=== PATIENT | male | born 1975 | race Caucasian/White ===

== ENCOUNTER 2024-07-06 22:18 | Emergency (ER) | payer OTHER, SELFPAY ==
[2024-07-06 22:35] VITALS: BP 129/90; PULSE 98; RESP 16; TEMP 36.7; O2SAT 97; BMI 32.1
--- NOTE | 2024-07-06 22:47 | ED_ITS ---
HPI - General Adult General Chief complaint: Back Injury/Pain Stated complaint: lower back pain Time Seen by Provider: 07/06/24 22:34 History of Present Illness HPI narrative: c/o back pain pt. woke up this morning with lower back pain. has been resting in bed all day. pt also c/o pain radiating down the right leg. pt. as been taking Advil at home with out much relief. 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 49-year-old man presenting to the emergency department with complaint of severe lower back pain. I ask about radiation down his legs but him this does not actually appear to be the case. It sounds like it is spasming or shocks of pain across his low back and then radiating up his back. He has been taking Advil without relief. No specific injury was noted. He just woke with this. No hematuria or dysuria or frequency described. No specific trauma noted. Never had pain like this before. Otherwise has been experiencing some swelling in his right lower leg over last few weeks. No pain here. Notes prior surgical procedure resulting in a divot in his anterior distal 3rd herr. Unclear what this procedure was. No cough or shortness of breath. 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 Advil has not been helpful. Related Data Home Medications ?Medication ?Instructions ?Recorded ?Confirmed No Known Home Medications 07/06/2406/14 Allergies Allergy/AdvReac Type Severity Reaction Status Date / Time No Known Drug Allergies Allergy Verified 07/06/24 22:32 Review of Systems Status of ROS: Reports: 6 or more systems reviewed and unremarkable except as noted in History and below Exam Narrative: Exam Narrative: Pleasant. Seated gingerly semi recumbent in the exam bed. Certain movements though suddenly cause spasms and gasps of pain. Right lower leg does have a depression in the lower 3rd mid anterior herr. Generally the right leg is moderately swollen with mild pitting edema but a little more so than the left which has a little bit as well. No significant erythematous change. Perfused peripherally. Thickened and yellowed toenails and generally increased calluses over heel and feet but no areas of skin breakdown or erythema. Lungs appear to be clear. Back without deformity. There is tenderness in the mid low back. Tenderness about the left greater than right SI joint but more superior to that. No tenderness to palpation of the buttock. Straight leg raise is negative other than causing pain in the back. Appears to be moving extremities with normal strength. Const: Vital Signs, click to edit/add: Vital Signs - 24 hr 07/06/24 22:35 Temperature 98.1 F Pulse Rate [Pulse Oximeter] 98 Respiratory Rate 16 Blood Pressure [Ri ght Upper Arm] 129/90 H Pulse Oximetry 97 Oxygen Delivery Me thod Room Air Documenting provider has reviewed patient's vital signs: yes Course Vital Signs Vital signs: Initial Vital Signs Temperature 98.1 F 07/06/24 22:35 Temperature Source Temporal Artery Scan 07/06/24 22:35 Pulse Rate 98 07/06/24 22:35 Respiratory Rate 16 07/06/24 22:35 Blood Pressure 129/90 H 07/06/24 22:35 Blood Pressure Mean 103 07/06/24 22:35 Blood Pressure Position Semi-Fowlers 07/06/24 22:35 Pulse Oximetry 97 07/06/24 22:35 Oxygen Delivery Method Room Air 07/06/24 22:35 Vital Signs Temperature 98.1 F 07/06/24 22:35 Pulse Rate 98 07/06/24 22:35 Respiratory Rate 16 07/06/24 22:35 Blood Pressure 129/90 H 07/06/24 22:35 Pulse Oximetry 97 07/06/24 22:35 Oxygen Delivery Method Room Air 07/06/24 22:35 Temperature 98.1 F 07/06/24 22:35 Pulse Rate 98 07/06/24 22:35 Respiratory Rate 16 07/06/24 22:35 Blood Pressure 129/90 H 07/06/24 22:35 Pulse Oximetry 97 07/06/24 22:35 Oxygen Delivery Method Room Air 07/06/24 22:35 Medications Administered Medications: Discontinued Medications Generic Name Dose Route Start Last Admin Trade Name Freq PRN Reason Stop Dose Admin Hydromorphone HCl 1 mg 07/06/24 22:55 07/06/24 23:00 Hydromorphone 0.5 Mg/0.5 Ml Inj IM 07/06/24 22:56 1 mg ONCE ONE Administration Ketorolac Tromethamine 60 mg 07/06/24 22:55 07/06/24 23:01 Ketorolac 60 Mg/2 Ml Inj IM 07/06/24 22:56 60 mg ONCE ONE Administration Lidocaine 1 patch 07/07/24 01:44 07/07/24 02:01 Lidocaine 5% Patch TRANSDERMA 07/07/24 01:45 1 patch ONCE ONE Administration Protocol Medical Decision Making MDM Narrative Medical decision making narrative: I wonder if may have some bulging disc or slipped disc but not really impinging on distally going nerves. Perhaps there is resulting muscle spasm. I suspect more though SI joint irritation resulting in muscle spasms of the area. Maybe other flamed articulations in the low back? Does seem to be more musculoskeletal in origin as opposed intra-abdominal or something like ureteral stone. I do not think that imaging available to me today is going to make much difference. There was no specific trauma. Will focus on pain management; settle all this down. Discussed options. Given injection of Dilaudid and ketorolac. On reassessment is improved though still with some discomfort and aggravation with movement. After discussion decided to do an ultrasound of the right leg to confirm no DVT. This as reported by plumber cub was negative. Peripheral edema possibly related to valvular disease, stress, lifestyle more likely as originally suspected. Also place a lidocaine patch prior to departure See patient discharge plan for further discussion If this lidocaine patch is helpful, you can purchase more [id number]. Temporarily and maybe with a little food, can take up to 800 mg of ibuprofen per dose. Take up to 1000 mg of acetaminophen per dose. Alternative to the ibuprofen might be up to 500 mg naproxen 2 times daily. Given the intense and spasm in nature to your pain at the moment I am prescribing some [place], on opiate from [facility]. Each tablet contains 5 mg of hydrocodone and 325 mg of acetaminophen. Otherwise cyclobenzaprine a ?muscle relaxer? but more probably more of a sedative, also from [facility] along with prednisone. See handouts/exercises on sacroiliac joint pain as well as herniated disc. I am not convinced you have a herniated disc but possibly bulging. Follow-up in a week if not improving. Would be good to make sure you have your legs up at rest for the edema you are experiencing. This includes having them properly elevated during sleep. Discharge Plan Discharge Clinical Impression: Muscle spasm, Low back pain, Peripheral edema Patient Disposition: Home w/ Parent or Adult Condition: Stable Instructions: Acute Low Back Pain (ED) Additional Instructions: If this lidocaine patch is helpful, you can purchase more [id number]. Temporarily and maybe with a little food, can take up to 800 mg of ibuprofen per dose. Take up to 1000 mg of acetaminophen per dose. Alternative to the ibuprofen might be up to 500 mg naproxen 2 times daily. Given the intense and spasm in nature to your pain at the moment I am prescribing some [place], on opiate from [facility]. Each tablet contains 5 mg of hydrocodone and 325 mg of acetaminophen. Otherwise cyclobenzaprine a ?muscle relaxer? but more probably more of a sedative, also from [facility] along with prednisone. See handouts/exercises on sacroiliac joint pain as well as herniated disc. I am not convinced you have a herniated disc but possibly bulging. Follow-up in a week if not improving. Would be good to make sure you have your legs up at rest for the edema you are experiencing. This includes having them properly elevated during sleep. Prescriptions: No Action No Known Home Medications Follow Up/Referrals: Provider,Not a Local [Primary Care Provider, Family Practice] Stand Alone Forms: [employer] Info Instructions
[2024-07-06] MEDS: HYDROmorphone 0.5 mg/0.5 ml inj 1 MG IM (23:00)
[2024-07-06] MEDS: KETOROLAC 60 MG/2 ML inj IM (23:01)
--- NOTE | 2024-07-07 00:09 | CRLHL7_ITS ---
For Patients: As a result of the Century Cures Act, medical imaging exams and procedure reports are released immediately into your electronic medical record. You may view this report before your referring provider. If you have questions, please contact your health care provider. INDICATION: Right lower extremity swelling. TECHNIQUE: Ultrasound venous duplex lower right extremity. Compression venous exam was performed using saul-scale, color Doppler, and spectral Doppler analysis. COMPARISON: None. FINDINGS: Deep veins: Sonographic imaging demonstrates the right common femoral, deep femoral, superficial femoral, popliteal, posterior tibial and the contralateral left common femoral veins to be fully compressible with normal color Doppler blood flow. Superficial veins: Greater saphenous vein is fully compressible. IMPRESSION: No right lower extremity DVT appreciated. Dictated by Macho Corey MD @ 07/07/2024 2:34:02 AM (Electronically Signed)
[2024-07-07] MEDS: LIDOCAINE 5% PATCH 1 PATCH TRANSDERMA (02:01)
== END 2024-07-07 02:03 | disposition home or self-care (01) ==
PROVIDERS: Emergency Provider Family Medicine
DX: M54.50 Low back pain, unspecified (principal); M62.838 Other muscle spasm; R60.0 Localized edema
CPT/HCPCS: 93971; 96372; 99284; A9270; J1171; J1885